=== PATIENT | male | born 2000 | race African-American/Black ===

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

== ENCOUNTER 2019-02-23 14:03 | Emergency (ER) | payer SELFPAY ==
[2019-02-23 14:20] VITALS: BP 116/74
--- NOTE | 2019-02-23 14:28 | UC ---
Throat Pain/Nasal Macario HPI - HPI Summary HPI Summary: Awoke this morning with a sore throat, which most concerns him because his uvula is sore and enlarged, and he has dysphagia and constant irritation. No fever, no cough. - History of Current Complaint Chief Complaint: UCGeneralIllness Stated Complaint: SORE THROAT Time Seen by Provider: 02/23/19 14:21 Hx Obtained From: Patient Onset/Duration: Sudden Onset, Lasting Hours Pain Intensity: 4 Cough: None Associated Signs & Symptoms: Positive: Dysphagia - Epiglottits Risk Factors Epiglottis Risk Factors: Negative - Allergies/Home Medications Allergies/Adverse Reactions: Allergies Allergy/AdvReac Type Severity Reaction Status Date / Time No Known Allergies Allergy Verified 02/23/19 14:19 PMH/Surg Hx/FS Hx/Imm Hx Previously Healthy: Yes - Surgical History Surgical History: None - Family History Known Family History: Positive: None, Non-Contributory - Social History Occupation: Employed Full-time Lives: With Family Alcohol Use: None Substance Use Type: None Smoking Status (MU): Current Every Day Smoker Review of Systems All Other Systems Reviewed And Are Negative: Yes Constitutional: Positive: Negative Skin: Positive: Negative Eyes: Positive: Negative ENT: Positive: Sore Throat Respiratory: Negative: Shortness Of Breath, Cough Cardiovascular: Positive: Negative Gastrointestinal: Positive: Negative Genitourinary: Positive: Negative Motor: Positive: Negative Neurovascular: Positive: Negative Musculoskeletal: Positive: Negative Neurological: Positive: Negative Psychological: Positive: Negative Is Patient Immunocompromised?: No Physical Exam Triage Information Reviewed: Yes Appearance: Well-Appearing, Pain Distress - mild Vital Signs: Initial Vital Signs Temp 98.8 F 02/23/19 14:17 Pulse 62 02/23/19 14:17 Resp 17 02/23/19 14:17 BP 116/74 02/23/19 14:17 Pulse Ox 100 02/23/19 14:17 Eye Exam: Normal ENT: Positive: Pharyngeal erythema - moderate uvular swelling and erythema without erosions or exudate. Long uvula which touches the back of his tongue. Airway is not obstructed., TMs normal, Tonsillar swelling. Negative: Tonsillar exudate Neck: Positive: Supple, Nontender, No Lymphadenopathy Respiratory: Positive: Lungs clear, Normal breath sounds Cardiovascular: Positive: RRR, No Murmur Musculoskeletal Exam: Normal Neurological Exam: Normal Psychological Exam: Normal Skin Exam: Normal Throat Pain/Nasal Course/Dx - Course Course Of Treatment: Symptomatic treatment of viral illness. Discussed could trial oral prednisone to decrease inflammation of the soft palate. - Differential Dx/Diagnosis Differential Diagnosis/HQI/PQRI: Laryngitis, Pharyngitis, Tonsillitis, URI Provider Diagnosis: Pharyngitis Discharge ED - Sign-Out/Discharge Documenting (check all that apply): Patient Departure All imaging exams completed and their final reports reviewed: No Studies - Discharge Plan Condition: Stable Disposition: HOME Prescriptions: predniSONE [Prednisone 20 MG TAB] 40 mg PO DAILY #4 tablet Patient Education Materials: Pharyngitis (ED) Forms: *Work Release Referrals: Evan Julio MD [Primary Care Provider] - Additional Instructions: You can use ibuprofen 800mg three times daily for control of pain, stopping if it causes stomach upset. Oral prednisone has been prescribe for tody and tomorrow to help to decrease the swelling in the soft palate. Ensure that you take this with food. Continue warm water and salt gargling. Follow up if you develop fever or have continued symptoms. - Billing Disposition and Condition Condition: STABLE Disposition: Home
== END 2019-02-23 14:49 | disposition home or self-care (01) ==
LOC: UCEAST 14:03
DX: J02.9 Acute pharyngitis, unspecified (principal); F17.200 Nicotine dependence, unspecified, uncomplicated
CPT/HCPCS: 87651; 99212; G0463